=== PATIENT | male | born 1995 | race Hispanic/Latino ===

== ENCOUNTER 2019-06-01 08:18 | Emergency (ER) | payer SELFPAY ==
[2019-06-01] MEDS ORDERED: KETOROLAC TROMETHAMINE 60 MG/2 ML VIAL ONE (08:59)
[2019-06-01] MEDS ORDERED: CYCLOBENZAPRINE HCL 10 MG TABLET ONE (09:00)
== END 2019-06-01 09:48 | disposition home or self-care (01) ==
LOC: EDH 08:18
DX: S13.9XXA Sprain of joints and ligaments of unspecified parts of neck, initial encounter (principal); Z72.0 Tobacco use; X58.XXXA Exposure to other specified factors, initial encounter; Y93.89 Activity, other specified; Y92.89 Other specified places as the place of occurrence of the external cause; Y99.8 Other external cause status
CPT/HCPCS: 96372; 99283; J1885